=== PATIENT | female | born 1955 | race Caucasian/White ===

== ENCOUNTER 2018-09-22 09:01 | Outpatient (CLI) | payer OTHER ==
--- NOTE | 2018-09-22 11:05 | MMO ---
BILATERAL MAMMOGRAMS: DATE: 09/22/18 HISTORY: Screening mammography. COMPARISON: 09/05/16. FINDINGS: Heterogeneously dense fibroglandular tissue benign-appearing calcifications. No dominant mass or susp icious calcifications. The study was evaluated with the assistance of computer-aided detection. IMPRESSION: BIRADS 1: Negative Suggest routine follow-up. POS: [facility]
== END 2018-09-22 09:02 | disposition home or self-care (01) ==
LOC: SCSMAMMO 09:01
PROVIDERS: ATTEND Family Medicine
DX: Z12.31 Encounter for screening mammogram for malignant neoplasm of breast (principal)
CPT/HCPCS: 77067